=== PATIENT | female | born 1970 | race Caucasian/White ===

== ENCOUNTER 2024-02-19 09:12 | Outpatient (CLI) | payer BC, SELFPAY | END 2024-02-19 09:13 | disposition home or self-care (01) | PROVIDERS: Visit Provider Family Medicine | DX: Z00.00 Encounter for general adult medical examination without abnormal findings (principal); E78.5 Hyperlipidemia, unspecified; F32.A Depression, unspecified; F41.9 Anxiety disorder, unspecified; R53.83 Other fatigue | CPT/HCPCS: 80053; 80061; 84443 ==

== ENCOUNTER 2024-05-04 07:01 | Outpatient (CLI) | payer BC, SELFPAY ==
--- NOTE | 2024-05-04 08:47 | W.ANESCHARGE ---
Anesthesia Charges Start Date/Time Anesthesia Start Date: 05/04/24 Anesthesia Start Time: 08:16 Stop Date/Time Anesthesia Stop Date: 05/04/24 Anesthesia Stop Time: 08:42
== END 2024-05-04 07:02 | disposition home or self-care (01) ==
LOC: OP CLINIC 07:02
PROVIDERS: PCP Family Medicine; Visit Provider Surgery
DX: Z12.11 Encounter for screening for malignant neoplasm of colon (principal); K62.1 Rectal polyp; Z80.0 Family history of malignant neoplasm of digestive organs
CPT/HCPCS: 00811; 45385; 88305; J2704

== ENCOUNTER 2024-08-23 14:00 | Outpatient (CLI) | payer BC, SELFPAY ==
--- NOTE | 2024-08-23 14:00 | CRLHL7_ITS ---
For Patients: As a result of the Century Cures Act, medical imaging exams and procedure reports are released immediately into your electronic medical record. You may view this report before your referring provider. If you have questions, please contact your health care provider. BILATERAL SCREENING MAMMOGRAM WITH COMPUTER-AIDED DETECTION AND TOMOSYNTHESIS TECHNIQUE: CC and MLO views were obtained. These mammographic images have been obtained using full-field digital technique. These mammographic images were interpreted with the benefit of computer-aided detection. Breast Tomosynthesis was used in this interpretation. COMPARISON FILM: None, baseline. FINDINGS: There are scattered areas of fibroglandular density. IMPRESSION: There is no radiographic evidence for malignancy. ASSESSMENT: BI-RADS Category 1: Negative RECOMMENDATION: Routine screening mammogram in 1 year. A lay language report of this examination will be provided to the patient. Maikol Marroquin M.D. Diagnostic Radiologist [email or web address] SP/Dictated by: Maikol Marroquin MD @ 08/24/2024 8:51:00 AM (Electronically Signed)
== END 2024-08-23 14:01 | disposition home or self-care (01) ==
LOC: MAMMO 14:01
PROVIDERS: PCP Family Medicine; Visit Provider Family Medicine
DX: Z12.31 Encounter for screening mammogram for malignant neoplasm of breast (principal)
CPT/HCPCS: 77063; 77067